=== PATIENT | female | born 1965 | race Native Hawaiian/Other Pacific Islander ===

== ENCOUNTER 2019-02-28 09:37 | Day surgery (SDC) | payer OTHER | END 2019-02-28 11:20 | disposition home or self-care (01) | LOC: OR 09:37 | PROC: 3E0U33Z Introduction of Anti-inflammatory into Joints, Percutaneous Approach (ICD-10-PCS; principal; 2019-02-28) | PROC: 3E0U3BZ Introduction of Anesthetic Agent into Joints, Percutaneous Approach (ICD-10-PCS; 2019-02-28) | DX: M53.3 Sacrococcygeal disorders, not elsewhere classified (principal); M46.1 Sacroiliitis, not elsewhere classified; M47.818 Spondylosis without myelopathy or radiculopathy, sacral and sacrococcygeal region | CPT/HCPCS: J1020; J3490 ==

== ENCOUNTER 2019-03-21 09:07 | Day surgery (SDC) | payer OTHER | END 2019-03-21 12:00 | disposition home or self-care (01) | LOC: OR 09:07 | PROC: 3E0U33Z Introduction of Anti-inflammatory into Joints, Percutaneous Approach (ICD-10-PCS; principal; 2019-03-21) | PROC: 3E0U3BZ Introduction of Anesthetic Agent into Joints, Percutaneous Approach (ICD-10-PCS; 2019-03-21) | DX: M53.3 Sacrococcygeal disorders, not elsewhere classified (principal); M46.1 Sacroiliitis, not elsewhere classified; M47.818 Spondylosis without myelopathy or radiculopathy, sacral and sacrococcygeal region | CPT/HCPCS: J1020; J3490 ==

== ENCOUNTER 2019-04-24 13:53 | Outpatient (CLI) | payer OTHER | END 2019-04-24 19:48 | disposition home or self-care (01) | LOC: LABW 13:53 | DX: M47.818 Spondylosis without myelopathy or radiculopathy, sacral and sacrococcygeal region (principal) | CPT/HCPCS: 36415; 85651; 86038; 86140; 86430 ==

== ENCOUNTER 2019-05-08 13:24 | Outpatient (CLI) | payer OTHER | END 2019-05-08 20:02 | disposition home or self-care (01) | LOC: CT 13:24 | DX: M16.11 Unilateral primary osteoarthritis, right hip (principal) ==

== ENCOUNTER 2020-01-15 08:06 | Day surgery (SDC) | payer OTHER | END 2020-01-15 09:30 | disposition home or self-care (01) | LOC: OR 08:06 → RAD 08:06 → OR 09:30 | PROC: 3E0T3TZ Introduction of Destructive Agent into Peripheral Nerves and Plexi, Percutaneous Approach (ICD-10-PCS; principal; 2020-01-15) | PROC: BR16YZZ Fluoroscopy of Lumbar Facet Joint(s) using Other Contrast (ICD-10-PCS; 2020-01-15) | DX: M47.816 Spondylosis without myelopathy or radiculopathy, lumbar region (principal) | CPT/HCPCS: J2001 ==

== ENCOUNTER 2020-05-06 09:12 | Day surgery (SDC) | payer OTHER ==
[~2020-05-06] VITALS: Ht 30.5 cm; Wt 0.5 kg
== END 2020-05-06 11:15 | disposition home or self-care (01) ==
LOC: OR 09:12
PROC: 3E0T3TZ Introduction of Destructive Agent into Peripheral Nerves and Plexi, Percutaneous Approach (ICD-10-PCS; principal; 2020-05-06)
PROC: BR16YZZ Fluoroscopy of Lumbar Facet Joint(s) using Other Contrast (ICD-10-PCS; 2020-05-06)
DX: M47.816 Spondylosis without myelopathy or radiculopathy, lumbar region (principal)
CPT/HCPCS: J2001